=== PATIENT | female | born 1985 | race Caucasian/White ===

== ENCOUNTER 2018-12-09 10:43 | Inpatient (IN) | payer MEDICAID ==
[2018-12-09 14:04] LABS: ADD UMIC YES; UR ASCORBIC ACID NEGATIVE (NEGATIVE); UR BACTERIA FEW /HPF (NONE SEEN); UR BILIRUBIN (Dip) NEGATIVE (NEGATIVE); UR BLOOD (Dip) NEGATIVE (NEGATIVE); UR CLARITY SLIGHTLY CLOUDY (CLEAR); UR COLOR YELLOW (YELLOW); UR GLUCOSE (Dip) NEGATIVE (NEGATIVE); UR KETONES (Dip) NEGATIVE (NEGATIVE); UR LEUKOCYTE ESTERASE (Dip) 1+ Leu/ul (NEGATIVE); UR NITRITE (Dip) NEGATIVE (NEGATIVE); UR RBC 0 /HPF (0-5); UR SPECIFIC GRAVITY (Dip) 1.011 (1.003-1.030); UR SQUAMOUS EPITHELIAL CELL FEW /HPF (FEW); UR TOTAL PROTEIN (Dip) NEGATIVE (NEGATIVE); UR UROBILINOGEN (Dip) NEGATIVE (NEGATIVE); UR WBC 1 /HPF (0-5)
[2018-12-09 14:22] LABS: ADD MAN DIFF? NO
[2018-12-09 14:27] LABS: BASOPHILS % 0.5 % (0.0-2.0); EOSINOPHILS # 0.3 10^3/ul (0.0-0.5); EOSINOPHILS % 3.4 % (0.0-7.0); HEMATOCRIT 34.6 % (37.0-47.0); HEMOGLOBIN 10.9 g/dl (12.0-16.0); LYMPHOCYTES # 1.3 10^3/ul (0.8-2.9); LYMPHOCYTES % 16.1 % (15.0-51.0); MEAN CORPUSCULAR HEMOGLOBIN 26.5 pg (29.0-33.0); MEAN CORPUSCULAR HGB CONC 31.5 g/dl (32.0-37.0); MEAN CORPUSCULAR VOLUME 84.2 fl (82.0-101.0); MEAN PLATELET VOLUME 9.7 fl (7.4-10.4); MONOCYTE # 0.9 10^3/ul (0.3-0.9); MONOCYTES % 11.1 % (0.0-11.0); NEUTROPHIL # 5.4 10^3/ul (1.6-7.5); PLATELET COUNT 365 10^3/UL (140-415); RED BLOOD COUNT 4.11 10^6/ul (4.20-5.40); RED CELL DISTRIBUTION WIDTH 14.3 % (11.5-14.5)
[2018-12-09 14:27] LABS: WHITE BLOOD COUNT 7.9 10^3/ul (4.8-10.8)
[2018-12-09] MEDS ORDERED: OXYTOCIN 30 UNITS/LR 500 ML IV ×2 (14:30)
[2018-12-09] MEDS ORDERED: BUTORPHANOL 2 MG INJ IV ×2 (14:30)
[2018-12-09] MEDS ORDERED: CARBOPROST 250 MCG INJ IM (14:30)
[2018-12-09] MEDS ORDERED: IBUPROFEN 600 MG TAB PO (14:30)
[2018-12-09] MEDS: LACTATED RINGER'S 1,000 ML IV ×2 (14:30→20:03)
[2018-12-09] MEDS ORDERED: MISOPROSTOL 200 MCG TAB PR (14:30)
[2018-12-09] MEDS ORDERED: OXYCODONE/ASPIRIN (4.88/325) TAB PO (14:30)
[2018-12-09] MEDS ORDERED: METHYLERGONOVINE 0.2 MG INJ IM (14:30)
[2018-12-09 14:45] LABS: INR 0.83; PROTIME 11.5 Sec (11.9-14.9); PT RATIO 0.9
[2018-12-09 14:46] LABS: PARTIAL THROMBOPLASTIN TIME 26.4 Sec (23.0-35.0)
[2018-12-09] MEDS: MISOPROSTOL 50 MCG CAPSULE PO ×2 (14:50→20:58)
[2018-12-09 15:15] LABS: HEPATITIS B SURFACE ANTIGEN NEGATIVE (NEGATIVE)
[2018-12-09 21:57] LABS: RAPID PLASMA REAGIN NONREACTIVE (NR)
[2018-12-10] MEDS: MISOPROSTOL 50 MCG CAPSULE PO ×4 (00:51→09:00)
[2018-12-10] MEDS: LACTATED RINGER'S 1,000 ML IV ×2 (04:25→12:32)
[2018-12-10] MEDS: OXYTOCIN 30 UNITS/LR 500 ML IV ×3 (09:08→19:26)
[2018-12-10] MEDS: MINERAL OIL LIGHT 10 ML VIAL TOP (17:34)
[2018-12-10] MEDS: ACETAMINOPHEN 500 MG TAB PO (17:56)
[2018-12-10] MEDS: LIDOCAINE 1% (MPF) 30 ML INJ INJ (18:26)
[2018-12-10] MEDS: KETOROLAC 30 MG INJ IV (18:34)
[2018-12-10] MEDS ORDERED: CARBOPROST 250 MCG INJ IM (20:30)
[2018-12-10] MEDS ORDERED: HYDROCODONE/APAP (5/325) TAB PO ×2 (20:30)
[2018-12-10] MEDS ORDERED: MISOPROSTOL 200 MCG TAB PR (20:30)
[2018-12-10] MEDS ORDERED: OXYTOCIN 30 UNITS/LR 500 ML IV (20:30)
[2018-12-10] MEDS ORDERED: METHYLERGONOVINE 0.2 MG INJ IM (20:30)
[2018-12-10] MEDS ORDERED: ZOLPIDEM 5 MG TAB PO (20:30)
[2018-12-10] MEDS ORDERED: ESTROGENS CONJUGATED 42.5 GM VAG CR VAG (21:00)
[2018-12-10] MEDS: MAGNESIUM HYDROXIDE 30ML CUP PO (21:31)
[2018-12-10] MEDS: LANOLIN HPA 1 PKT TOP (21:31)
[2018-12-10] MEDS: SENNA/DOCUSATE NA (8.6MG/50MG) TAB PO (21:31)
[2018-12-10] MEDS: BENZOCAINE 20% 56 ML SPRAY TOP (21:31)
[2018-12-10] MEDS: WITCH HAZEL/GLYCERIN PAD PR (21:32)
[2018-12-10] MEDS: DIBUCAINE 1% 30 GM OINT TOP (22:08)
[2018-12-10] MEDS: IBUPROFEN 600 MG TAB PO (23:57)
[2018-12-10] MEDS: LACTATED RINGER'S 1,000 ML IV* (23:57)
[2018-12-11] MEDS: LACTATED RINGER'S 1,000 ML IV* (04:11)
[2018-12-11] MEDS: IBUPROFEN 600 MG TAB PO ×3 (05:57→18:04)
[2018-12-11 08:30] LABS: ADD MAN DIFF? NO
[2018-12-11 08:37] LABS: BASOPHILS % 0.3 % (0.0-2.0); EOSINOPHILS # 0.4 10^3/ul (0.0-0.5); EOSINOPHILS % 3.8 % (0.0-7.0); HEMATOCRIT 30.8 % (37.0-47.0); HEMOGLOBIN 9.9 g/dl (12.0-16.0); LYMPHOCYTES # 1.6 10^3/ul (0.8-2.9); LYMPHOCYTES % 15.7 % (15.0-51.0); MEAN CORPUSCULAR HEMOGLOBIN 26.7 pg (29.0-33.0); MEAN CORPUSCULAR HGB CONC 32.1 g/dl (32.0-37.0); MEAN PLATELET VOLUME 10.1 fl (7.4-10.4); MONOCYTE # 0.6 10^3/ul (0.3-0.9); MONOCYTES % 6.3 % (0.0-11.0); NEUTROPHIL # 7.3 10^3/ul (1.6-7.5); NEUTROPHILS % 73.3 % (39.0-77.0); PLATELET COUNT 323 10^3/UL (140-415); RED BLOOD COUNT 3.71 10^6/ul (4.20-5.40); RED CELL DISTRIBUTION WIDTH 14.1 % (11.5-14.5)
[2018-12-11] MEDS: MAGNESIUM HYDROXIDE 30ML CUP PO ×2 (10:22→21:00)
[2018-12-11] MEDS: ESTROGENS CONJUGATED 42.5 GM VAG CR VAG ×2 (10:22→22:05)
[2018-12-11] MEDS: SENNA/DOCUSATE NA (8.6MG/50MG) TAB PO ×2 (10:22→21:00)
[2018-12-12] MEDS: IBUPROFEN 600 MG TAB PO ×3 (05:27→12:14)
[2018-12-12] MEDS: DIPHTH/TET/ACEL PERTUSS (ADULT) 0.5 ML VIAL IM* (09:00)
[2018-12-12] MEDS: VARICELLA VACCINE LIVE/PF 1,350 UNIT/0.5 ML ML SC* (09:00)
[2018-12-12] MEDS: SENNA/DOCUSATE NA (8.6MG/50MG) TAB PO (09:00)
[2018-12-12] MEDS: MAGNESIUM HYDROXIDE 30ML CUP PO (09:00)
[2018-12-12] MEDS: MEASLES,MUMPS,RUBELLA VACCINE INJ SC* (09:00)
[2018-12-12] MEDS: ESTROGENS CONJUGATED 42.5 GM VAG CR VAG (10:41)
== END 2018-12-12 16:58 | disposition home or self-care (01) | DRG 807 ==
LOC: OBT 10:43 → L-D 10:43 → PP1 12-10 20:03 → OBT 13:06 → L-D 13:06
PROC: 10E0XZZ Delivery of Products of Conception, External Approach (ICD-10-PCS; principal; 2018-12-10)
PROC: 0HQ9XZZ Repair Perineum Skin, External Approach (ICD-10-PCS; 2018-12-10)
DX: O48.0 Post-term pregnancy (principal); O70.0 First degree perineal laceration during delivery; Z37.0 Single live birth; Z3A.40 40 weeks gestation of pregnancy
CPT/HCPCS: 76815; 76818; 81001; 85025; 85610; 85730; 86592; 86850; 86900; 86901; 87086; 87340; 90716